=== PATIENT | female | born 1945 | race Caucasian/White ===

== ENCOUNTER 2016-11-12 07:15 | Day surgery (SDC) | payer MEDICARE, OTHER ==
[2016-11-10 15:48] VITALS: BMI 31.3
[~2016-11-12 07:15] MED LIST: LACTATED RINGERS 1,000 ML IV SCH; LIDOCAINE 1% 20 ML VIAL (10MG/ML) FOR IV START INTRADERMA PRN
[2016-11-12] MEDS ORDERED: LACTATED RINGERS 1,000 ML IV ONE (07:36)
[2016-11-12 07:45] VITALS: RESP 16; TEMP 97.3
[2016-11-12] MEDS ORDERED: PROPOFOL 10 MG/ML 20 ML VIAL IV ONE (08:01)
--- NOTE | 2016-11-12 08:05 | P.GSHP ---
History of Present Illness H&P Date: 11/12/16 Chief Complaint: GI bleed, history of diverticulitis This is a 71-year-old female who presents today for colonoscopy. Patient sees Dr. mejia outpatient. She has had issues with rectal bleeding. She's. History of diverticulitis. Her last colonoscopy was over 10 years ago. Past Medical History Past Medical History: GERD/Reflux, Hyperlipidemia, Thyroid Disorder Additional Past Medical History / Comment(s): recent blood in stool, hx. ulcerative colitis-just finished antibiotics History of Any Multi-Drug Resistant Organisms: None Reported Past Surgical History: Hysterectomy Additional Past Surgical History / Comment(s): colonoscopy x2 Past Anesthesia/Blood Transfusion Reactions: No Reported Reaction Smoking Status: Former smoker - Past Family History Mother Family Medical History: No Reported History Medications and Allergies Home Medications Medication Instructions Recorded Confirmed Type Cranberry Fruit Extract [Theracran] 650 mg PO DAILY 11/10/16 11/12/16 History L.acidoph,Paracasei, B.lactis 1 each PO DAILY 11/10/16 11/12/16 History [Probiotic] Levothyroxine Sodium [Synthroid] 137 mcg PO DAILY 11/10/16 11/12/16 History Simvastatin [Zocor] 20 mg PO DAILY 11/10/16 11/12/16 History Allergies Allergy/AdvReac Type Severity Reaction Status Date / Time erythromycin base AdvReac Abdominal Verified 11/12/16 07:37 [Erythromycin Base] Pain Surgical - Exam Vital Signs Temp Pulse Resp BP Pulse Ox 97.3 F L 94 16 149/89 95 11/12/16 07:42 11/12/16 07:42 11/12/16 07:42 11/12/16 07:42 11/12/16 07:42 - General well developed, no distress - Eyes PERRL - ENT normal pinna - Neck no masses - Respiratory normal expansion - Cardiovascular Rhythm: regular - Abdomen Abdomen: soft, non tender Assessment and Plan Plan: GI bleed. We will perform colonoscopy.
--- NOTE | 2016-11-12 08:27 | P.OP ---
Date of Procedure: 11/12/16 Preoperative Diagnosis: GI bleed Postoperative Diagnosis: External hemorrhoids Rectal polyp Sigmoid colon inflammation pathology pending Procedure(s) Performed: Colonoscopy Anesthesia: MAC Surgeon: Salo Faustin Pathology: other (Rectal polyp, sigmoid colon) Condition: stable Description of Procedure: Patient's placed on the endoscopy table in the lateral position. She received IV sedation. Digital rectal exam was performed which revealed external hemorrhoids. The flexible colonoscope was then placed patient anus passed throughout the entire colon. The ileocecal valve was visualized. The cecum, ascending and transverse colon appeared normal. In the descending colon there is mild diverticular changes. The sigmoid colon had diverticula.; Appeared to be grossly inflamed. A biopsies performed. Scope was then brought back the rectum and this appeared normal. Scope was withdrawn from patient.
[2016-11-12 08:46] VITALS: BP 140/86; PULSE 73
== END 2016-11-12 09:00 | disposition home or self-care (01) ==
LOC: ORWHC2ENDO 07:15
PROVIDERS: ATTEND Surgery
DX: K62.1 Rectal polyp (principal); K52.9 Noninfective gastroenteritis and colitis, unspecified; K64.4 Residual hemorrhoidal skin tags; K62.89 Other specified diseases of anus and rectum; Z87.19 Personal history of other diseases of the digestive system; K21.9 Gastro-esophageal reflux disease without esophagitis; E78.5 Hyperlipidemia, unspecified; E07.9 Disorder of thyroid, unspecified; Z87.891 Personal history of nicotine dependence; Z79.899 Other long term (current) drug therapy; Z88.1 Allergy status to other antibiotic agents
CPT/HCPCS: 88305; 45380; J2704

== ENCOUNTER → 2016-12-16 | Outpatient (CLI) | payer MEDICARE, OTHER ==
--- NOTE | 2016-12-17 12:47 | MM ---
Reason for exam: screening (asymptomatic). Last mammogram was performed 1 year and 9 months ago. History: Patient is postmenopausal. Family history of breast cancer in paternal cousin and premenopausal breast cancer in paternal cousin. Physical Findings: A clinical breast exam by your physician is recommended on an annual basis and results should be correlated with mammographic findings. MG 3D Screening Mammo W/Cad Bilateral CC and MLO view(s) were taken. Prior study comparison: March 29, 2015, bilateral MG 3d screening mammo w/cad. March 23, 2014, right breast MG diagnostic mammo RT w CAD. The breast tissue is heterogeneously dense. This may lower the sensitivity of mammography. No suspicious abnormality. Central posterior depth right asymmetry appears similar to 2013. ASSESSMENT: Benign, BI-RAD 2 RECOMMENDATION: Routine screening mammogram of both breasts in 1 year.
== END | disposition home or self-care (01) ==
LOC: RADMAMWWP 10:48
PROVIDERS: ATTEND Family Medicine
DX: Z12.31 Encounter for screening mammogram for malignant neoplasm of breast (principal)
CPT/HCPCS: 77063; G0202

== ENCOUNTER → 2017-09-04 | Outpatient (CLI) | payer MEDICARE, OTHER ==
[2017-09-04 15:24] LABS: Blood Urea Nitrogen 20 mg/dL (7-17)
--- NOTE | 2017-09-05 21:45 | CT ---
EXAMINATION TYPE: CT abdomen w con DATE OF EXAM: 09/04/2017 HISTORY: Abdominal pain, pancreas protocol per schedule CT DLP: 1179.6mGycm Automated Exposure Control for Dose Reduction was Utilized. CONTRAST: CT scan of the abdomen is performed with IV Contrast, patient injected with 100 mL of Isovue 300. COMPARISON: None. FINDINGS: LUNG BASES: Minimal left basilar subsegmental atelectasis is seen. There is a large hiatal hernia wit h folding of the distal esophagus, which is fluid-filled. LIVER/GB: Hepatic parenchyma is diffusely hypoattenuated in comparison to that of the spleen, most co mmonly seen in hepatic steatosis. This finding limits evaluation for hepatic masses. No gross evidenc e of hepatic mass is seen. No intrahepatic biliary ductal dilatation. Focal fatty sparing is seen nella und the gallbladder fossa. PANCREAS: There is no evidence of abnormal pancreatic enhancement to suggest pancreatic mass. No panc reatic ductal dilatation is seen. Adjacent to the head of the pancreas there is a descending duodenal diverticulum. No peripancreatic fat stranding. No pancreatic calcifications. SPLEEN: Small splenules are seen adjacent to the unremarkable [place] spleen. ADRENALS: No nodularity or thickening is noted. KIDNEYS: Kidneys enhance and excrete symmetrically without hydronephrosis. However there is a too sma ll to accurately characterize right inferior pole posterior cortical renal lesion measuring 6 mm on s eries 4 image 98. Within the right upper pole there is another too small to accurately characterize h ypoattenuated 5 mm lesion on series 6 image 50. Right cortical scarring is noted with retraction of t he upper and mid pole. Additionally there is a nonobstructing 4 mm left lower pole renal calculus. BOWEL: No large or small bowel dilatation. LYMPH NODES: No greater than 1cm abdominal or pelvic lymph nodes are appreciated. OSSEOUS STRUCTURES: Degenerative changes of the lumbar spine with focus of air in the epidural space most commonly from adjacent degenerative disc disease. OTHER: There is a very small periumbilical hernia and diastases recti. Umbilical hernia is fat filled . Moderate atherosclerosis is seen of the abdominal aorta and its branches. No aneurysmal dilatation. IMPRESSION: 1. No evidence of pancreatic ductal dilatation or abnormal enhancement to suggest mass. No evidence o f acute pancreatitis. 2. Hepatic steatosis and areas of focal fatty sparing. 3. Large hiatal hernia and folding of the distal esophagus that is fluid-filled. This could relate to gastroesophageal reflux. 4. Nonobstructing left lower pole renal calculus.
== END | disposition home or self-care (01) ==
LOC: RADCTMAIN 14:50
PROVIDERS: ATTEND Family Medicine
DX: N20.0 Calculus of kidney (principal); K44.9 Diaphragmatic hernia without obstruction or gangrene; K21.9 Gastro-esophageal reflux disease without esophagitis; K76.0 Fatty (change of) liver, not elsewhere classified
CPT/HCPCS: 82565; 84520; 74160; 36415; Q9967

== ENCOUNTER → 2018-02-05 | Outpatient (CLI) | payer MEDICARE, OTHER ==
--- NOTE | 2018-02-05 10:16 | US ---
EXAMINATION TYPE: US abdomen complete DATE OF EXAM: 02/05/2018 COMPARISON: NONE CLINICAL HISTORY: K76.89 Liver mass. EXAM MEASUREMENTS: Liver Length: 16.8 cm Gallbladder Wall: 0.3 cm CBD: 0.4 cm Spleen: 9.8 cm Right Kidney: 12.2 x 5.2 x 4.4 cm Left Kidney: 11.6 x 5.7 x 5.1 cm Patient of large body habitus, technically difficult and limited study. Pancreas: Obscured by bowel gas Liver: Increased attenuation, decreased visualization of vessels suggestive of fatty infiltrate, ruby e areas of probable focal fatty sparing adjacent to gallbladder, largest area measuring 1.2 x 1.9 x 0 .9cm, upper limits in size, limited due to body habitus Gallbladder: wnl Evidence for sonographic Ramon's sign: no CBD: wnl, as visualized, limited views Spleen: wnl Right Kidney: No hydronephrosis or masses seen, limited due to body habitus Left Kidney: No hydronephrosis or masses seen, limited due to body habitus Upper IVC: not seen due to body habitus Abd Aorta: proximal portion and bifurcation obscured by overlying bowel gas IMPRESSION: 1. Limited examination due to body habitus. 2. Moderate fatty infiltration liver.
== END | disposition home or self-care (01) ==
LOC: RADUSWWP 08:14
PROVIDERS: ATTEND Family Medicine
DX: K76.0 Fatty (change of) liver, not elsewhere classified (principal)
CPT/HCPCS: 76700